=== PATIENT | female | born 1945 | race Caucasian/White ===

== ENCOUNTER 2016-12-27 09:22 | Day surgery (SDC) | payer MEDICARE ==
[~2016-12-27 09:22] MED LIST: Cefuroxime 10 MG/ML SYRINGE EYERT SCH; Lidocaine 1% PF 2 ML SDV INJECT SCH; Pilocarpine 4% Ophth Soln 15 ML Bot EYERT SCH
[2016-12-27] MEDS: Polymyxin B/Trimethoprim 10 ML Bottle EYERT SCH ×3 (10:45→12:44)
[2016-12-27] MEDS: Brimonidine 0.2% Ophth Soln 5 ML Bottle EYERT SCH ×3 (10:50→12:44)
[2016-12-27] MEDS: Phenylephrine 2.5% Ophth Soln 2 ML Bot EYERT SCH ×5 (10:55→12:24)
--- NOTE | 2016-12-27 10:58 | PCM.PREANE ---
Preanesthetic Assessment - Anesthesia/Transfusion/Family Hx Anesthesia History: Prior Anesthesia Without Reaction Family History of Anesthesia Reaction: No Transfusion History: No Prior Transfusion(s) - Review of Systems General: No Symptoms Pulmonary: No Symptoms Cardiovascular: No Symptoms Gastrointestinal: No Symptoms Neurological: No Symptoms Other: Reports: Thyroid Problems - Physical Assessment NPO Status Date: 12/26/16 NPO Status Time: 22:00 Pulse: 77 O2 Sat by Pulse Oximetry: 97 Respiratory Rate: 16 Blood Pressure: 145/73 Temperature: 36.4 C Vital Signs: Last Vital Signs Temp 36.6 C 12/27/16 10:40 Pulse 77 12/27/16 10:40 Resp 16 12/27/16 10:40 BP 145/73 H 12/27/16 10:40 Pulse Ox 97 12/27/16 10:40 Height: 1.68 m Weight: 65.771 kg ASA Class: 2 Mental Status: Alert & Oriented x3 Airway Class: Mallampati = 1 Dentition: Reports: Normal Dentition Thyro-Mental Finger Breadths: 3 Mouth Opening Finger Breadths: 3 ROM/Head Extension: Full Lungs: Clear to Auscultation, Normal Respiratory Effort Cardiovascular: Regular Rate, Regular Rhythm, No Murmurs - Allergies Allergies/Adverse Reactions: Allergies Allergy/AdvReac Type Severity Reaction Status Date / Time No Known Allergies Allergy Verified 12/26/16 14:36 - Blood Blood Available: No Product(s) Available: None - Anesthesia Plan Pre-Op Medication Ordered: None - Acknowledgements Anesthesia Type Planned: MAC Pt an Appropriate Candidate for the Planned Anesthesia: Yes Alternatives and Risks of Anesthesia Discussed w Pt/Guardian: Yes Pt/Guardian Understands and Agrees with Anesthesia Plan: Yes PreAnesthesia Questionnaire - HOME MEDS Home Medications: Home Meds Levothyroxine [Synthroid] 100 mcg PO DAILY 12/26/16 [History] Losartan [Cozaar] 50 mg PO DAILY 12/26/16 [History] amLODIPine [Norvasc] 5 mg PO DAILY PRN 12/26/16 [History] - CURRENT (IN HOUSE) MEDS Current Meds: Current Medications Brimonidine Tartrate (Alphagan 0.2% Ophth Soln) 0 ml EYERT ASDIRECTED MIQUEL Stop: 12/27/16 18:00 Last Admin: 12/27/16 10:50 Dose: 1 drop Cefuroxime Sodium (Zinacef) 0 mg EYERT ASDIRECTED MIQUEL Stop: 12/27/16 18:00 Lidocaine HCl (Xylocaine-Mpf 1%) 10 ml INJECT ASDIRECTED MIQUEL Stop: 12/27/16 18:00 Phenylephrine HCl (Peryr-Synephrine 2.5% Ophth Soln) 0 ml EYERT ASDIRECTED MIQUEL Stop: 12/27/16 18:00 Pilocarpine HCl (Pilocar 4% Ophth Soln) 0 ml EYERT ASDIRECTED MIQUEL Stop: 12/27/16 18:00 Polymyxin/Trimethoprim Sulfate (Polytrim Ophth Soln) 0 ml EYERT ASDIRECTED MIQUEL Stop: 12/27/16 18:00 Last Admin: 12/27/16 10:45 Dose: 1 drop Tetracaine HCl (Tetracaine 0.5% Steri-Unit Kimberli) 0 ml EYERT ASDIRECTED MIQUEL Stop: 12/27/16 18:00 Tropicamide (Mydriacyl 1% Oph Soln) 0 ml EYERT ASDIRECTED MIQUEL Stop: 12/27/16 18:00
[2016-12-27] MEDS: Tetracaine HCl/PF 0.5% 4 ML Bottle EYERT SCH ×2 (12:01→12:34)
--- NOTE | 2016-12-27 12:45 | PCM48HPAN ---
Post Anesthesia Note - EVALUATION WITHIN 48HRS OF ANESTHETIC Vital Signs in Normal Range: Yes Patient Participated in Evaluation: Yes Respiratory Function Stable: Yes Airway Patent: Yes Cardiovascular Function Stable: Yes Hydration Status Stable: Yes Pain Control Satisfactory: Yes Nausea and Vomiting Control Satisfactory: Yes Mental Status Recovered: Yes
== END 2016-12-27 12:55 | disposition home or self-care (01) ==
LOC: JD.SDS 09:22
PROVIDERS: ATTEND Ophthalmology
DX: H25.811 Combined forms of age-related cataract, right eye (principal); H52.31 Anisometropia; H02.831 Dermatochalasis of right upper eyelid; H02.834 Dermatochalasis of left upper eyelid; E07.9 Disorder of thyroid, unspecified; Z98.42 Cataract extraction status, left eye; Z96.1 Presence of intraocular lens; Z79.899 Other long term (current) drug therapy
CPT/HCPCS: 66984; A9270; J0697; V2632